=== PATIENT | male | born 1960 | race Caucasian/White ===

== ENCOUNTER 2017-08-18 09:49 | Emergency (ER) | payer OTHER ==
[~2017-08-18] VITALS: Ht 162.6 cm; Wt 54.9 kg
[~2017-08-18 09:49] MED LIST: AMBIEN10 MG PO; AMIODARONE HCL100 MG PO; ARTHRITIS; ASPI-COR81 M3 PO; ASPIR 8181 MG PO; ASPIR-LOW81 M1 PO; ASPIRIN CHILDRE81 MG PO; ATORVASTATIN CA40 M1 PO; AZITHROMYCIN D250 M1 PO; CARDIZEM CD180 MG PO; CARVEDILOL3.125 M1 PO; CARVEDILOL6.25 M1 PO; DILTIAZEM HCL120 M2 PO; FLECAINIDE ACE100 MG PO; FLECAINIDE ACET50 MG PO; GLIPIZIDE10 MG PO; GLIPIZIDE2.5 M1 PO; GLU10XL PO; GLU500 PO; HTN MED; HYDROCODONE/ACE1 TA2 PO; KLOR-CON M1010 MEQ PO; LASIX40 MG PO; LISINOPRIL10 MG PO; LISINOPRIL5 MG PO; LOPRESSOR50 MG PO; LORAZEPAM1 MG PO; METFORMIN HCL1000 MG PO; METFORMIN HCL500 MG PO; METFORMIN HYDR500 M1 PO; METOPROLOL TART25 M1 PO; NIT0.4 SL; NITROGLYCERIN0.4 MG SL; PRILOSEC20 MG PO; SIMVASTATIN10 M1 PO; SIMVASTATIN20 M1 PO; SOM350 PO; TOPROL XL25 MG PO; [UNRECOGNIZED DRUG - CODE] IV
[2017-08-18 10:33] LABS: BASOPHIL % 0.5 % (0-2); PLATELET COUNT 315 x10^3mcL (130-400); RED CELL DISTRIBUTION WIDTH 13.2 % (11.5-14.5)
[2017-08-18 10:59] LABS: BILIRUBIN TOTAL 0.65 mg/dL (0.20-1.00); CALCIUM 9.3 mg/dL (8.5-10.1); CARBON DIOXIDE 25.1 mmol/L (21-32); CREATININE SERUM 1.5 mg/dL (0.7-1.3); POTASSIUM SERUM 4.6 mmol/L (3.5-5.1); TOTAL PROTEIN, SERUM 7.5 g/dL (6.4-8.2)
[2017-08-18 13:07] VITALS: BP 120/71
== END 2017-08-18 13:07 | disposition home or self-care (01) ==
LOC: ED 09:49
PROVIDERS: Emergency Medicine
DX: E11.9 Type 2 diabetes mellitus without complications (principal); K80.20 Calculus of gallbladder without cholecystitis without obstruction; R10.9 Unspecified abdominal pain; M19.90 Unspecified osteoarthritis, unspecified site; I10 Essential (primary) hypertension; Z48.812 Encounter for surgical aftercare following surgery on the circulatory system
CPT/HCPCS: 82962; 83880; J1815; J1885; J2270; J7030; Q0092

== ENCOUNTER 2018-03-23 16:02 | Inpatient (IN) | payer OTHER ==
[~2018-03-23] VITALS: Ht 162.6 cm; Wt 54.7 kg
[2018-03-23 16:07] VITALS: Ht 162.6 cm; Wt 54.7 kg
[2018-03-23 17:05] LABS: PLATELET COUNT 162 x10^3mcL (130-400)
[2018-03-23 17:15] LABS: CALCIUM 8.2 mg/dL (8.5-10.1); CARBON DIOXIDE 27.4 mmol/L (21-32); CHLORIDE SERUM 107 mmol/L (98-107); CREATININE SERUM 1.1 mg/dL (0.7-1.3); GFR1 > 60 mL/min; GLUCOSE SERUM 231 mg/dL (74-106); POTASSIUM SERUM 3.7 mmol/L (3.5-5.1); SODIUM SERUM 131 mmol/L (136-145)
[2018-03-23 17:19] LABS: ALKALINE PHOSPHATASE 96 U/L (46-116); ALT/SGPT 18 U/L (16-63); AST/SGOT 19 U/L (15-37); BILIRUBIN TOTAL 0.81 mg/dL (0.20-1.00); TOTAL PROTEIN, SERUM 6.9 g/dL (6.4-8.2)
[2018-03-23 17:21] LABS: ALBUMIN 2.9 g/dL (3.4-5.0)
[2018-03-23 17:57] LABS: RED CELL DISTRIBUTION WIDTH 22.2 % (11.5-14.5)
[2018-03-23 18:01] LABS: BAND NEUTROPHIL 0 % (0-10); MONOCYTE 7 % (0-7); SEGMENTED NEUTROPHILS 68 % (37-75)
[2018-03-23 18:02] LABS: BASOPHIL 1 % (0-2)
[2018-03-23 18:03] LABS: rbc morphology (normal/abnorm) ABNORMAL (NORMAL)
[2018-03-23 18:04] LABS: ovalocyte/elliptocyte 1+
[2018-03-23] MEDS ORDERED: LISINOPRIL2.5 MG (18:42)
[2018-03-23 19:45] VITALS: BP 172/95
[2018-03-23 20:12] LABS: MAGNESIUM 1.6 mg/dL (1.8-2.4); PHOSPHOROUS 3.3 mg/dL (2.5-4.9)
[2018-03-23 20:13] LABS: CHOLESTEROL/HDL RATIO 3.5
[2018-03-23 20:18] LABS: T3 TOTAL 1.05 ng/mL
[2018-03-23 20:19] LABS: FREE THYROXINE INDEX 2.6 ug/dL (1.4-4.5); T4(THYROXINE) 7.7 ug/dL (4.7-13.3)
[2018-03-23 23:32] VITALS: BP 136/76
[2018-03-24 05:41] VITALS: BP 117/64
[2018-03-24 06:34] LABS: BASOPHIL % 0.5 % (0-2); PLATELET COUNT 134 x10^3mcL (130-400)
[2018-03-24 06:54] LABS: RED CELL DISTRIBUTION WIDTH 22.2 % (11.5-14.5)
[2018-03-24 07:24] LABS: UA SPECIFIC GRAVITY 1.025 (1.005-1.035); microscopic required? YES; urine erythrocyte 1+ (NEGATIVE)
[2018-03-24 07:45] VITALS: BP 135/64
[2018-03-24 07:53] LABS: AMPHETAMINE QUAL UR NONE DETECTED (See below)
[2018-03-24 08:00] LABS: CALCIUM 8.4 mg/dL (8.5-10.1); CARBON DIOXIDE 22.5 mmol/L (21-32); CHLORIDE SERUM 109 mmol/L (98-107); CREATININE SERUM 0.9 mg/dL (0.7-1.3); GFR1 > 60 mL/min; GLUCOSE SERUM 137 mg/dL (74-106); POTASSIUM SERUM 3.6 mmol/L (3.5-5.1); SODIUM SERUM 140 mmol/L (136-145)
[2018-03-24 12:11] VITALS: BP 113/63
[2018-03-24 16:09] VITALS: BP 141/77
[2018-03-24 21:26] VITALS: BP 141/74
[2018-03-25 05:26] VITALS: BP 103/61
[2018-03-25 07:00] LABS: CALCIUM 8.2 mg/dL (8.5-10.1); CHLORIDE SERUM 107 mmol/L (98-107); GFR1 > 60 mL/min; GLUCOSE SERUM 132 mg/dL (74-106); MAGNESIUM 1.6 mg/dL (1.8-2.4); PHOSPHOROUS 4.1 mg/dL (2.5-4.9); POTASSIUM SERUM 4.2 mmol/L (3.5-5.1); SODIUM SERUM 137 mmol/L (136-145)
[2018-03-25 08:21] VITALS: BP 141/74
[2018-03-25 08:52] LABS: BASOPHIL % 0.2 % (0-2); PLATELET COUNT 139 x10^3mcL (130-400)
[2018-03-25 08:56] LABS: RED CELL DISTRIBUTION WIDTH 22.1 % (11.5-14.5)
[2018-03-25 11:34] LABS: ovalocyte/elliptocyte 3+; rbc morphology (normal/abnorm) ABNORMAL (NORMAL); tear drop cell (dacryocyte) 2+
== END 2018-03-25 11:15 | disposition left against medical advice (07) | DRG 203 ==
LOC: ED 16:02 → DU 18:40
PROVIDERS: Internal Medicine
DX: M94.0 Chondrocostal junction syndrome [Tietze] (principal); N17.0 Acute kidney failure with tubular necrosis; R45.851 Suicidal ideations; E44.0 Moderate protein-calorie malnutrition; E11.65 Type 2 diabetes mellitus with hyperglycemia; I48.92 Unspecified atrial flutter; I48.91 Unspecified atrial fibrillation; Z95.1 Presence of aortocoronary bypass graft; Z68.1 Body mass index [BMI] 19.9 or less, adult; G89.29 Other chronic pain; I49.9 Cardiac arrhythmia, unspecified; Z53.21 Procedure and treatment not carried out due to patient leaving prior to being seen by health care provider; I25.10 Atherosclerotic heart disease of native coronary artery without angina pectoris; D50.9 Iron deficiency anemia, unspecified; F32.9 Major depressive disorder, single episode, unspecified; I10 Essential (primary) hypertension; Z66 Do not resuscitate; Z79.82 Long term (current) use of aspirin; Z79.84 Long term (current) use of oral hypoglycemic drugs; Z95.810 Presence of automatic (implantable) cardiac defibrillator; Z82.49 Family history of ischemic heart disease and other diseases of the circulatory system; Z85.89 Personal history of malignant neoplasm of other organs and systems
CPT/HCPCS: 82962; 83880; 84439; J2270; J7030; J7050; Q0092

== ENCOUNTER 2018-04-13 08:18 | Inpatient (IN) | payer OTHER ==
[~2018-04-13] VITALS: Ht 165.1 cm; Wt 54.0 kg
[~2018-04-13 08:18] MED LIST changes: +LISINOPRIL2.5 MG
[2018-04-13 09:28] LABS: BASOPHIL % 0.5 % (0-2); PLATELET COUNT 197 x10^3mcL (130-400); RED CELL DISTRIBUTION WIDTH 22.7 % (11.5-14.5)
[2018-04-13 09:40] LABS: CALCIUM 8.4 mg/dL (8.5-10.1); CARBON DIOXIDE 24.9 mmol/L (21-32); CHLORIDE SERUM 105 mmol/L (98-107); CREATININE SERUM 1.2 mg/dL (0.7-1.3); GFR1 > 60 mL/min; GLUCOSE SERUM 418 mg/dL (74-106); POTASSIUM SERUM 4.2 mmol/L (3.5-5.1); SODIUM SERUM 138 mmol/L (136-145)
[2018-04-13 09:44] LABS: ALKALINE PHOSPHATASE 122 U/L (46-116); ALT/SGPT 17 U/L (16-63); AMYLASE 50 U/L (25-115); AST/SGOT 19 U/L (15-37); BILIRUBIN TOTAL 0.61 mg/dL (0.20-1.00); CHOLESTEROL 197 mg/dL (<200); HDL CHOLESTEROL 38 mg/dL (40-60); LIPASE 160 IU/L (73-393); TOTAL PROTEIN, SERUM 6.9 g/dL (6.4-8.2)
[2018-04-13 09:55] LABS: ALBUMIN 2.6 g/dL (3.4-5.0)
[2018-04-13 10:12] LABS: UA SPECIFIC GRAVITY 1.025 (1.005-1.035); microscopic required? YES; urine erythrocyte 2+ (NEGATIVE)
[2018-04-13 10:25] LABS: AMPHETAMINE QUAL UR NONE DETECTED (See below)
[2018-04-13 11:33] LABS: MAGNESIUM 1.8 mg/dL (1.8-2.4); PHOSPHOROUS 3.9 mg/dL (2.5-4.9)
[2018-04-13 11:43] LABS: T3 TOTAL 1.3 ng/mL
[2018-04-13 11:45] LABS: FREE THYROXINE INDEX 2.1 ug/dL (1.4-4.5)
[2018-04-14 00:18] VITALS: BP 139/90
[2018-04-14 04:56] LABS: BASOPHIL % 0.5 % (0-2)
[2018-04-14 05:06] LABS: CALCIUM 7.5 mg/dL (8.5-10.1); CARBON DIOXIDE 23.9 mmol/L (21-32); CHLORIDE SERUM 112 mmol/L (98-107); CREATININE SERUM 0.8 mg/dL (0.7-1.3); GFR1 > 60 mL/min; GLUCOSE SERUM 121 mg/dL (74-106); MAGNESIUM 1.7 mg/dL (1.8-2.4); PHOSPHOROUS 3.5 mg/dL (2.5-4.9); POTASSIUM SERUM 3.6 mmol/L (3.5-5.1); SODIUM SERUM 143 mmol/L (136-145)
[2018-04-14 05:09] LABS: RED CELL DISTRIBUTION WIDTH 22.7 % (11.5-14.5)
[2018-04-14 05:10] LABS: PLATELET COUNT 133 x10^3mcL (130-400)
[2018-04-14 05:22] VITALS: BP 101/66
[2018-04-14 05:43] LABS: ovalocyte/elliptocyte 1+; rbc morphology (normal/abnorm) ABNORMAL (NORMAL)
[2018-04-14 05:45] LABS: acanthocyte (spur cell) 1+
[2018-04-14 08:00] VITALS: BP 106/67
[2018-04-14 12:00] VITALS: BP 102/72
[2018-04-14 16:00] VITALS: BP 109/63
[2018-04-14 21:06] VITALS: BP 93/64
[2018-04-15 05:33] VITALS: BP 105/71
[2018-04-15 06:44] LABS: BASOPHIL % 0.8 % (0-2); PLATELET COUNT 146 x10^3mcL (130-400)
[2018-04-15 07:15] LABS: CALCIUM 7.8 mg/dL (8.5-10.1); CHLORIDE SERUM 113 mmol/L (98-107); CREATININE SERUM 1.1 mg/dL (0.7-1.3); GFR1 > 60 mL/min; GLUCOSE SERUM 141 mg/dL (74-106); MAGNESIUM 2.3 mg/dL (1.8-2.4); PHOSPHOROUS 3.5 mg/dL (2.5-4.9); POTASSIUM SERUM 4.2 mmol/L (3.5-5.1); SODIUM SERUM 141 mmol/L (136-145)
[2018-04-15 07:22] LABS: RED CELL DISTRIBUTION WIDTH 22.8 % (11.5-14.5)
[2018-04-15 08:10] VITALS: BP 125/83
[2018-04-15 13:04] VITALS: BP 96/54
[2018-04-15 16:25] VITALS: BP 100/57
[2018-04-15 19:45] VITALS: BP 99/66
[2018-04-16 04:48] VITALS: BP 117/74
[2018-04-16 06:30] LABS: BASOPHIL % 0.5 % (0-2); PLATELET COUNT 156 x10^3mcL (130-400)
[2018-04-16 06:47] LABS: RED CELL DISTRIBUTION WIDTH 22.9 % (11.5-14.5)
[2018-04-16 07:00] LABS: CARBON DIOXIDE 18.4 mmol/L (21-32); CHLORIDE SERUM 113 mmol/L (98-107); CREATININE SERUM 1.1 mg/dL (0.7-1.3); GFR1 > 60 mL/min; GLUCOSE SERUM 65 mg/dL (74-106); MAGNESIUM 2.2 mg/dL (1.8-2.4); PHOSPHOROUS 3.9 mg/dL (2.5-4.9); POTASSIUM SERUM 4.6 mmol/L (3.5-5.1); SODIUM SERUM 142 mmol/L (136-145)
[2018-04-16 08:30] VITALS: BP 115/69
[2018-04-16] MEDS ORDERED: QUETIAPINE FUMA25 M1 PO (14:18)
== END 2018-04-16 15:11 | disposition home or self-care (01) | DRG 203 ==
LOC: ED 08:18 → MU 11:00 → DU 11:00 → IC 22:35 → DU 04-14 17:49 → IC 04-14 17:50 → DU 04-14 18:22
PROVIDERS: Emergency Medicine; Family Medicine
DX: M94.0 Chondrocostal junction syndrome [Tietze] (principal); N17.0 Acute kidney failure with tubular necrosis; E43 Unspecified severe protein-calorie malnutrition; R65.10 Systemic inflammatory response syndrome (SIRS) of non-infectious origin without acute organ dysfunction; E11.65 Type 2 diabetes mellitus with hyperglycemia; R45.851 Suicidal ideations; I11.9 Hypertensive heart disease without heart failure; E83.51 Hypocalcemia; E83.42 Hypomagnesemia; I48.92 Unspecified atrial flutter; I47.1 Supraventricular tachycardia; I48.91 Unspecified atrial fibrillation; F20.0 Paranoid schizophrenia; Z59.0 Homelessness; Z91.14 Patient's other noncompliance with medication regimen; K21.9 Gastro-esophageal reflux disease without esophagitis; R80.9 Proteinuria, unspecified; R31.9 Hematuria, unspecified; E02 Subclinical iodine-deficiency hypothyroidism; E78.00 Pure hypercholesterolemia, unspecified; Z79.82 Long term (current) use of aspirin; F17.210 Nicotine dependence, cigarettes, uncomplicated; Z79.84 Long term (current) use of oral hypoglycemic drugs; M19.90 Unspecified osteoarthritis, unspecified site; Z82.49 Family history of ischemic heart disease and other diseases of the circulatory system; Z80.9 Family history of malignant neoplasm, unspecified; F32.9 Major depressive disorder, single episode, unspecified; Z68.1 Body mass index [BMI] 19.9 or less, adult
CPT/HCPCS: 82962; 83880; 84439; G0480; J1815; J2270; J3475; J3490; J7030; Q0092

== ENCOUNTER 2018-05-19 19:15 | Inpatient (IN) | payer OTHER ==
[~2018-05-19] VITALS: Ht 162.6 cm; Wt 60.0 kg
[~2018-05-19 19:15] MED LIST changes: +GLIPIZIDE10 M2; -GLIPIZIDE10 MG PO; +QUETIAPINE FUMA25 M1 PO
[2018-05-19 19:37] VITALS: Ht 162.6 cm; Wt 60.0 kg
[2018-05-19 22:02] LABS: BASOPHIL % 0.3 % (0-2); PLATELET COUNT 180 x10^3mcL (130-400)
[2018-05-19 22:16] LABS: CALCIUM 8.4 mg/dL (8.5-10.1); CARBON DIOXIDE 23.7 mmol/L (21-32); CREATININE SERUM 1.4 mg/dL (0.7-1.3); POTASSIUM SERUM 3.9 mmol/L (3.5-5.1)
[2018-05-19 22:22] LABS: BILIRUBIN TOTAL 1.2 mg/dL (0.20-1.00); TOTAL PROTEIN, SERUM 6.6 g/dL (6.4-8.2)
[2018-05-19 22:24] LABS: ALBUMIN 2.7 g/dL (3.4-5.0)
[2018-05-19 22:25] LABS: RED CELL DISTRIBUTION WIDTH 20.3 % (11.5-14.5)
[2018-05-19 22:43] LABS: rbc morphology (normal/abnorm) ABNORMAL (NORMAL)
[2018-05-19 22:44] LABS: acanthocyte (spur cell) 1+; ovalocyte/elliptocyte 1+
[2018-05-20 00:43] LABS: AMPHETAMINE QUAL UR NONE DETECTED (See below)
[2018-05-20 03:30] LABS: UA SPECIFIC GRAVITY 1.025 (1.005-1.035); microscopic required? YES; urine erythrocyte 1+ (NEGATIVE)
[2018-05-20 03:52] LABS: CHOLESTEROL/HDL RATIO 5.2; MAGNESIUM 1.7 mg/dL (1.8-2.4); PHOSPHOROUS 3.9 mg/dL (2.5-4.9)
[2018-05-20 04:03] LABS: FREE T4 1.24 ng/dL (0.76-1.46); FREE THYROXINE INDEX 2.7 ug/dL (1.4-4.5); T4(THYROXINE) 7.4 ug/dL (4.7-13.3)
[2018-05-20 05:06] LABS: BASOPHIL % 0.8 % (0-2); PLATELET COUNT 165 x10^3mcL (130-400)
[2018-05-20 05:12] LABS: RED CELL DISTRIBUTION WIDTH 20.6 % (11.5-14.5)
[2018-05-20 05:21] LABS: CALCIUM 7.8 mg/dL (8.5-10.1); CARBON DIOXIDE 21.7 mmol/L (21-32); CHLORIDE SERUM 105 mmol/L (98-107); CREATININE SERUM 1.2 mg/dL (0.7-1.3); GFR1 > 60 mL/min; GLUCOSE SERUM 273 mg/dL (74-106); POTASSIUM SERUM 3.4 mmol/L (3.5-5.1); SODIUM SERUM 139 mmol/L (136-145)
[2018-05-20] MEDS ORDERED: NITROGLYCERIN0.4 MG SL (07:00)
[2018-05-20 14:39] LABS: T3 TOTAL 0.9 ng/mL
[2018-05-20 14:41] VITALS: BP 11/69; BP 111/69
[2018-05-20 17:28] VITALS: BP 121/75
[2018-05-20 22:08] VITALS: BP 121/82
[2018-05-21 06:10] VITALS: BP 124/78
[2018-05-21 07:07] LABS: PLATELET COUNT 173 x10^3mcL (130-400)
[2018-05-21 07:15] LABS: RED CELL DISTRIBUTION WIDTH 20.2 % (11.5-14.5)
[2018-05-21 07:27] LABS: CALCIUM 7.8 mg/dL (8.5-10.1); CARBON DIOXIDE 25.8 mmol/L (21-32); CHLORIDE SERUM 107 mmol/L (98-107); CREATININE SERUM 1.1 mg/dL (0.7-1.3); GFR1 > 60 mL/min; GLUCOSE SERUM 133 mg/dL (74-106); MAGNESIUM 1.6 mg/dL (1.8-2.4); PHOSPHOROUS 3.9 mg/dL (2.5-4.9); POTASSIUM SERUM 3.4 mmol/L (3.5-5.1); SODIUM SERUM 141 mmol/L (136-145)
[2018-05-21 10:01] VITALS: BP 125/69
[2018-05-21 11:49] LABS: ATYPICAL LYMPH 8 %; BAND NEUTROPHIL 1 % (0-10); BASOPHIL 1 % (0-2); MONOCYTE 14 % (0-7); SEGMENTED NEUTROPHILS 61 % (37-75); rbc morphology (normal/abnorm) ABNORMAL (NORMAL)
[2018-05-21 11:50] LABS: PLATELET MORPHOLOGY PLATELETS DECREASED; ovalocyte/elliptocyte 3+; schistocyte (helmet cell) 2+
[2018-05-21 12:40] VITALS: BP 141/86
[2018-05-21 13:28] LABS: BILIRUBIN DIRECT 0.32 mg/dL (0.0-0.2); BILIRUBIN TOTAL 1.18 mg/dL (0.20-1.00); TOTAL PROTEIN, SERUM 6.5 g/dL (6.4-8.2)
[2018-05-21 13:30] LABS: ALBUMIN 2.5 g/dL (3.4-5.0)
[2018-05-21 16:00] VITALS: BP 126/67
[2018-05-21 19:44] VITALS: BP 109/69
[2018-05-22 05:36] VITALS: BP 118/69
[2018-05-22 08:36] VITALS: BP 128/76
[2018-05-22 09:05] LABS: BASOPHIL % 0.6 % (0-2); PLATELET COUNT 198 x10^3mcL (130-400)
[2018-05-22 09:08] LABS: RED CELL DISTRIBUTION WIDTH 19.4 % (11.5-14.5)
[2018-05-22 09:21] LABS: CALCIUM 8.6 mg/dL (8.5-10.1); CARBON DIOXIDE 29.1 mmol/L (21-32); CREATININE SERUM 1.3 mg/dL (0.7-1.3)
[2018-05-22 12:36] VITALS: BP 119/65
[2018-05-22 13:20] VITALS: BP 119/65
[2018-05-22 17:57] VITALS: BP 126/70
[2018-05-22 22:25] VITALS: BP 114/60
[2018-05-23 05:06] VITALS: BP 105/59
[2018-05-23 09:12] VITALS: BP 137/72
[2018-05-23 13:10] VITALS: BP 137/72
== END 2018-05-23 14:35 | disposition home or self-care (01) | DRG 133 ==
LOC: ED 19:15 → MU 05-20 02:38 → DU 05-20 02:38 → MU 05-22 17:46 → DU 05-23 05:44
PROVIDERS: Emergency Medicine; Family Medicine; ADMIT Internal Medicine
DX: J96.00 Acute respiratory failure, unspecified whether with hypoxia or hypercapnia (principal); N17.0 Acute kidney failure with tubular necrosis; E43 Unspecified severe protein-calorie malnutrition; G92 Toxic encephalopathy; I50.43 Acute on chronic combined systolic (congestive) and diastolic (congestive) heart failure; I48.91 Unspecified atrial fibrillation; R45.851 Suicidal ideations; E11.65 Type 2 diabetes mellitus with hyperglycemia; I48.92 Unspecified atrial flutter; I11.0 Hypertensive heart disease with heart failure; E83.42 Hypomagnesemia; M94.0 Chondrocostal junction syndrome [Tietze]; F10.129 Alcohol abuse with intoxication, unspecified; R80.9 Proteinuria, unspecified; F11.10 Opioid abuse, uncomplicated; R74.0 Nonspecific elevation of levels of transaminase and lactic acid dehydrogenase [LDH]; Y90.0 Blood alcohol level of less than 20 mg/100 ml; F17.210 Nicotine dependence, cigarettes, uncomplicated; M19.90 Unspecified osteoarthritis, unspecified site; E02 Subclinical iodine-deficiency hypothyroidism; D50.9 Iron deficiency anemia, unspecified; E87.6 Hypokalemia; Z59.0 Homelessness; Z68.23 Body mass index [BMI] 23.0-23.9, adult; Z79.84 Long term (current) use of oral hypoglycemic drugs; Z82.49 Family history of ischemic heart disease and other diseases of the circulatory system; Z80.9 Family history of malignant neoplasm, unspecified; Z56.0 Unemployment, unspecified; Z71.41 Alcohol abuse counseling and surveillance of alcoholic; Z71.51 Drug abuse counseling and surveillance of drug abuser
CPT/HCPCS: 82962; 83880; 84439; 97110-GP; 97116-GP; G0480; J1644; J1940; J2270; Q0092

== ENCOUNTER 2018-05-23 19:41 | Emergency (ER) | payer OTHER ==
[~2018-05-23] VITALS: Ht 162.6 cm; Wt 54.9 kg
[2018-05-23 20:13] VITALS: Ht 162.6 cm; Wt 54.9 kg
[2018-05-23 20:56] LABS: BASOPHIL % 0.4 % (0-2); CALCIUM 8.8 mg/dL (8.5-10.1); CARBON DIOXIDE 29.9 mmol/L (21-32); CHLORIDE SERUM 104 mmol/L (98-107); CREATININE SERUM 1.5 mg/dL (0.7-1.3); GFR1 51 mL/min; GLUCOSE SERUM 288 mg/dL (74-106); PLATELET COUNT 211 x10^3mcL (130-400); POTASSIUM SERUM 3.8 mmol/L (3.5-5.1); SODIUM SERUM 141 mmol/L (136-145)
[2018-05-23 21:00] LABS: RED CELL DISTRIBUTION WIDTH 20.1 % (11.5-14.5)
[2018-05-23 21:21] LABS: ovalocyte/elliptocyte 2+; rbc morphology (normal/abnorm) ABNORMAL (NORMAL)
[2018-05-23 22:04] LABS: AMPHETAMINE QUAL UR NONE DETECTED (See below)
[2018-05-24 07:10] VITALS: BP 122/74
== END 2018-05-24 07:10 | disposition home or self-care (01) ==
LOC: ED 19:41
PROVIDERS: Emergency Medicine
DX: F19.10 Other psychoactive substance abuse, uncomplicated (principal); I10 Essential (primary) hypertension; E11.9 Type 2 diabetes mellitus without complications; I49.9 Cardiac arrhythmia, unspecified; M19.90 Unspecified osteoarthritis, unspecified site; Z98.890 Other specified postprocedural states; Z76.5 Malingerer [conscious simulation]; Z59.0 Homelessness
CPT/HCPCS: 36415; G0480

== ENCOUNTER 2018-05-27 19:05 | Emergency (ER) | payer OTHER ==
[2018-05-28 06:48] VITALS: BP 149/82
== END 2018-05-28 06:48 | disposition home or self-care (01) ==
LOC: ED 19:05
DX: R45.851 Suicidal ideations (principal); Z76.5 Malingerer [conscious simulation]; F15.10 Other stimulant abuse, uncomplicated; I10 Essential (primary) hypertension; E11.9 Type 2 diabetes mellitus without complications; M19.90 Unspecified osteoarthritis, unspecified site; Z59.0 Homelessness

== ENCOUNTER 2018-06-13 21:51 | Inpatient (IN) | payer OTHER ==
[~2018-06-13] VITALS: Ht 162.6 cm; Wt 58.5 kg
[2018-06-13 22:25] VITALS: Ht 162.6 cm; Wt 58.5 kg
[2018-06-13 23:10] LABS: BASOPHIL % 0.4 % (0-2); PLATELET COUNT 224 x10^3mcL (130-400)
[2018-06-13 23:21] LABS: CALCIUM 8.5 mg/dL (8.5-10.1); CARBON DIOXIDE 19.7 mmol/L (21-32); CHLORIDE SERUM 105 mmol/L (98-107); CREATININE SERUM 1.1 mg/dL (0.7-1.3); GFR1 > 60 mL/min; GLUCOSE SERUM 154 mg/dL (74-106); POTASSIUM SERUM 4.1 mmol/L (3.5-5.1); SODIUM SERUM 139 mmol/L (136-145)
[2018-06-13 23:26] LABS: ALKALINE PHOSPHATASE 112 U/L (46-116); ALT/SGPT 11 U/L (16-63); AST/SGOT 14 U/L (15-37); BILIRUBIN TOTAL 0.97 mg/dL (0.20-1.00); TOTAL PROTEIN, SERUM 6.8 g/dL (6.4-8.2); acanthocyte (spur cell) 1+; rbc morphology (normal/abnorm) ABNORMAL (NORMAL)
[2018-06-13 23:31] LABS: ALBUMIN 3.2 g/dL (3.4-5.0)
[2018-06-14] VITALS (7 sets, daily range): BP systolic 115–151; BP diastolic 56–78
[2018-06-14 02:48] LABS: MAGNESIUM 1.5 mg/dL (1.8-2.4); PHOSPHOROUS 4.1 mg/dL (2.5-4.9)
[2018-06-14 02:49] LABS: CHOLESTEROL/HDL RATIO 5.3
[2018-06-14 04:28] LABS: UA SPECIFIC GRAVITY 1.025 (1.005-1.035); microscopic required? YES; urine erythrocyte TRACE (NEGATIVE)
[2018-06-14 04:37] LABS: AMPHETAMINE QUAL UR NONE DETECTED (See below)
[2018-06-14 06:30] LABS: CALCIUM 8.4 mg/dL (8.5-10.1); CARBON DIOXIDE 23.6 mmol/L (21-32); CHLORIDE SERUM 103 mmol/L (98-107); CREATININE SERUM 1.1 mg/dL (0.7-1.3); GFR1 > 60 mL/min; GLUCOSE SERUM 149 mg/dL (74-106); MAGNESIUM 1.3 mg/dL (1.8-2.4); POTASSIUM SERUM 3.4 mmol/L (3.5-5.1); SODIUM SERUM 138 mmol/L (136-145)
[2018-06-14 07:05] LABS: BASOPHIL % 0.1 % (0-2); PLATELET COUNT 178 x10^3mcL (130-400)
[2018-06-14 07:16] LABS: RED CELL DISTRIBUTION WIDTH 22.6 % (11.5-14.5)
[2018-06-14 07:17] LABS: rbc morphology (normal/abnorm) ABNORMAL (NORMAL)
[2018-06-15 05:00] VITALS: BP 108/58
[2018-06-15 06:59] LABS: BASOPHIL % 0.2 % (0-2); PLATELET COUNT 171 x10^3mcL (130-400)
[2018-06-15 07:35] LABS: RED CELL DISTRIBUTION WIDTH 22.8 % (11.5-14.5)
[2018-06-15 07:43] LABS: CALCIUM 8.2 mg/dL (8.5-10.1); CREATININE SERUM 1.3 mg/dL (0.7-1.3); MAGNESIUM 2.1 mg/dL (1.8-2.4); PHOSPHOROUS 5.2 mg/dL (2.5-4.9); POTASSIUM SERUM 4.4 mmol/L (3.5-5.1)
[2018-06-15 10:47] VITALS: BP 128/63
[2018-06-15 15:04] VITALS: BP 134/64
[2018-06-15 16:44] VITALS: BP 108/63
[2018-06-15 20:39] VITALS: BP 110/47
[2018-06-16 04:23] VITALS: BP 113/61
[2018-06-16 07:13] LABS: CALCIUM 8.4 mg/dL (8.5-10.1); CARBON DIOXIDE 22.1 mmol/L (21-32); CREATININE SERUM 1.4 mg/dL (0.7-1.3); MAGNESIUM 1.9 mg/dL (1.8-2.4); PHOSPHOROUS 4.7 mg/dL (2.5-4.9); POTASSIUM SERUM 4.4 mmol/L (3.5-5.1)
[2018-06-16 07:15] LABS: PLATELET COUNT 176 x10^3mcL (130-400)
[2018-06-16 07:48] LABS: BASOPHIL % 0 % (0-2); RED CELL DISTRIBUTION WIDTH 21.3 % (11.5-14.5)
[2018-06-16 10:32] LABS: rbc morphology (normal/abnorm) ABNORMAL (NORMAL)
[2018-06-16 10:33] LABS: ovalocyte/elliptocyte 1+; tear drop cell (dacryocyte) 1+
[2018-06-16 12:26] VITALS: BP 117/60
[2018-06-16 17:05] VITALS: BP 125/53
[2018-06-16 20:47] VITALS: BP 119/55
[2018-06-17 06:37] VITALS: BP 103/53
[2018-06-17 08:00] LABS: BASOPHIL % 0.2 % (0-2); PLATELET COUNT 165 x10^3mcL (130-400)
[2018-06-17 09:00] LABS: CREATININE SERUM 1.9 mg/dL (0.7-1.3); MAGNESIUM 2.1 mg/dL (1.8-2.4); PHOSPHOROUS 4.3 mg/dL (2.5-4.9); POTASSIUM SERUM 4.9 mmol/L (3.5-5.1)
[2018-06-17 09:10] VITALS: BP 125/61
[2018-06-17 09:59] LABS: ovalocyte/elliptocyte 1+
[2018-06-17 10:00] LABS: rbc morphology (normal/abnorm) ABNORMAL (NORMAL)
[2018-06-17 12:56] VITALS: BP 112/59
[2018-06-17 18:09] VITALS: BP 140/62
[2018-06-17 20:22] VITALS: BP 125/62
[2018-06-18 05:15] VITALS: BP 110/53
[2018-06-18 07:46] LABS: CARBON DIOXIDE 20.2 mmol/L (21-32); CREATININE SERUM 1.7 mg/dL (0.7-1.3); PHOSPHOROUS 3.9 mg/dL (2.5-4.9)
[2018-06-18 08:35] LABS: BASOPHIL % 0.2 % (0-2); PLATELET COUNT 161 x10^3mcL (130-400)
[2018-06-18 08:41] LABS: RED CELL DISTRIBUTION WIDTH 20.9 % (11.5-14.5)
[2018-06-18 08:59] VITALS: BP 104/55
[2018-06-18 12:38] VITALS: BP 112/74
[2018-06-18] MEDS ORDERED: ZES10 PO (13:48)
[2018-06-18] MEDS ORDERED: [UNRECOGNIZED DRUG - CODE] PO (13:50)
[2018-06-18 14:57] VITALS: BP 104/55
== END 2018-06-18 16:13 | disposition home or self-care (01) | DRG 203 ==
LOC: ED 21:51 → DU 06-14 00:48
PROVIDERS: Emergency Medicine; ADMIT Internal Medicine
DX: M94.0 Chondrocostal junction syndrome [Tietze] (principal); N17.0 Acute kidney failure with tubular necrosis; E11.51 Type 2 diabetes mellitus with diabetic peripheral angiopathy without gangrene; E11.65 Type 2 diabetes mellitus with hyperglycemia; D50.9 Iron deficiency anemia, unspecified; F10.129 Alcohol abuse with intoxication, unspecified; E44.1 Mild protein-calorie malnutrition; F41.9 Anxiety disorder, unspecified; F17.210 Nicotine dependence, cigarettes, uncomplicated; E83.42 Hypomagnesemia; I10 Essential (primary) hypertension; Y90.0 Blood alcohol level of less than 20 mg/100 ml; M19.90 Unspecified osteoarthritis, unspecified site; Z59.0 Homelessness; Z79.84 Long term (current) use of oral hypoglycemic drugs; Z68.22 Body mass index [BMI] 22.0-22.9, adult
CPT/HCPCS: 82962; 83880; 85378; A9500; G0480; J2060; J2270; J2405; J2785; J3475; J7040; J7620; Q0092; Q9967

== ENCOUNTER 2018-07-29 18:35 | Emergency (ER) | payer OTHER ==
[~2018-07-29] VITALS: Ht 162.6 cm; Wt 58.5 kg
[~2018-07-29 18:35] MED LIST changes: +ZES10 PO; +[UNRECOGNIZED DRUG - CODE] PO
[2018-07-29 19:08] VITALS: Ht 162.6 cm; Wt 58.5 kg
[2018-07-29 20:58] VITALS: BP 135/95
== END 2018-07-29 20:58 | disposition home or self-care (01) ==
LOC: ED 18:35
DX: M79.10 Myalgia, unspecified site (principal); E11.65 Type 2 diabetes mellitus with hyperglycemia; I10 Essential (primary) hypertension; M19.90 Unspecified osteoarthritis, unspecified site; M79.605 Pain in left leg; M79.604 Pain in right leg
CPT/HCPCS: 82962; J2270

== ENCOUNTER 2018-08-04 06:45 | Emergency (ER) | payer OTHER ==
[~2018-08-04] VITALS: Ht 162.6 cm; Wt 60.8 kg
[2018-08-04 06:49] VITALS: Ht 162.6 cm; Wt 60.8 kg
[2018-08-04 09:00] LABS: BASOPHIL % 0.5 % (0-2); PLATELET COUNT 148 x10^3mcL (130-400)
[2018-08-04 09:03] LABS: RED CELL DISTRIBUTION WIDTH 22.5 % (11.5-14.5)
[2018-08-04 09:11] LABS: CALCIUM 8.2 mg/dL (8.5-10.1); CARBON DIOXIDE 23.2 mmol/L (21-32); CHLORIDE SERUM 106 mmol/L (98-107); GFR1 > 60 mL/min; GLUCOSE SERUM 164 mg/dL (74-106); POTASSIUM SERUM 4.2 mmol/L (3.5-5.1); SODIUM SERUM 137 mmol/L (136-145)
[2018-08-04 09:12] LABS: AMPHETAMINE QUAL UR NONE DETECTED (See below)
[2018-08-04 09:16] LABS: rbc morphology (normal/abnorm) ABNORMAL (NORMAL)
[2018-08-04 09:17] LABS: ovalocyte/elliptocyte 2+
[2018-08-04 09:22] LABS: ALKALINE PHOSPHATASE 137 U/L (46-116); ALT/SGPT 16 U/L (16-63); AST/SGOT 17 U/L (15-37); BILIRUBIN TOTAL 0.9 mg/dL (0.20-1.00); FREE T4 1.11 ng/dL (0.76-1.46); FREE THYROXINE INDEX 2.5 ug/dL (1.4-4.5); MAGNESIUM 1.9 mg/dL (1.8-2.4); T4(THYROXINE) 7.2 ug/dL (4.7-13.3); TOTAL PROTEIN, SERUM 6.6 g/dL (6.4-8.2)
[2018-08-04 09:24] LABS: ALBUMIN 2.8 g/dL (3.4-5.0); T3 TOTAL 1.15 ng/mL
[2018-08-04 12:29] VITALS: BP 124/73
== END 2018-08-04 12:29 | disposition home or self-care (01) ==
LOC: ED 06:45
PROVIDERS: Emergency Medicine
DX: R07.89 Other chest pain (principal); R00.2 Palpitations; R42 Dizziness and giddiness; E11.65 Type 2 diabetes mellitus with hyperglycemia; I10 Essential (primary) hypertension; M19.90 Unspecified osteoarthritis, unspecified site; Z98.890 Other specified postprocedural states
CPT/HCPCS: 84439; J2405; J3010; J3490

== ENCOUNTER 2018-10-16 20:06 | Emergency (ER) | payer OTHER ==
[~2018-10-16] VITALS: Ht 162.6 cm; Wt 55.4 kg
[2018-10-16 20:11] VITALS: Ht 162.6 cm; Wt 55.4 kg
[2018-10-16 21:14] LABS: BASOPHIL % 0.6 % (0-2); PLATELET COUNT 196 x10^3mcL (130-400)
[2018-10-16 21:20] LABS: RED CELL DISTRIBUTION WIDTH 21.9 % (11.5-14.5)
[2018-10-16 21:36] LABS: CALCIUM 8.6 mg/dL (8.5-10.1); CARBON DIOXIDE 21.5 mmol/L (21-32); CREATININE SERUM 2.1 mg/dL (0.7-1.3); POTASSIUM SERUM 4.6 mmol/L (3.5-5.1)
[2018-10-16 21:38] LABS: ovalocyte/elliptocyte 2+; rbc morphology (normal/abnorm) ABNORMAL (NORMAL); tear drop cell (dacryocyte) 1+
[2018-10-16 21:50] LABS: ALBUMIN 2.9 g/dL (3.4-5.0); BILIRUBIN TOTAL 0.8 mg/dL (0.20-1.00); TOTAL PROTEIN, SERUM 7.2 g/dL (6.4-8.2)
[2018-10-17 06:18] VITALS: BP 132/71
== END 2018-10-17 06:18 | disposition home or self-care (01) ==
LOC: ED 20:06
PROVIDERS: Emergency Medicine
DX: R07.89 Other chest pain (principal); I10 Essential (primary) hypertension; E11.9 Type 2 diabetes mellitus without complications; Z98.890 Other specified postprocedural states
CPT/HCPCS: 82962; 83880; J7030